=== PATIENT | female | born 1945 | race Caucasian/White ===

== ENCOUNTER 2017-01-14 09:39 | Outpatient (CLI) | payer OTHER ==
[~2017-01-14 09:39] MED LIST: ALPRAZOLAM0.5 MG PO; ATORVASTATIN CA40 MG PO; GLUCOSAMINE1500 CO1 PO; LEVOTHYROXINE100 MCG PO; NAPROSYN250 MG PO; PERCOCET1 TA1 PO
--- NOTE | 2017-01-17 09:46 | DIAGNOSTIC IMAGING REPORT ---
PROCEDURE: MG UNILAT SCREEN-RIGHT W/CAD INDICATION: SCREENING, left mastectomy 2015. TECHNIQUE: CC and MLO digital views. COMPARISON: Mammogram 05/21/2015. FINDINGS: Computer-aided detection applied. Mildly dense pattern. 8 mm opacity in the superior posterior third of the right breast which was present previously but is now more conspicuous. Dystrophic calcifications are present. IMPRESSION: 1. 8 mm opacity in the superior posterior aspect of the right breast. Recommend additional views and ultrasound. RESULT CODE: 0- Incomplete; needs additional evaluation. A. A negative report should not delay biopsy if a dominant or clinically suspicious mass is present. 10-15% of cancers are not identified by x-ray. B. A negative report may reinforce clinical impression. C. Adenosis and dense breasts may obscure an underlying neoplasm. D. False positive reports average 6-10%. E.. A yearly screening mammogram is recommended. A reminder letter will be scheduled.
== END 2017-01-14 23:00 ==
LOC: MAM SRH 09:39
DX: Z12.31 Encounter for screening mammogram for malignant neoplasm of breast (principal); Z98.890 Other specified postprocedural states